=== PATIENT | female | born 1950 | race Caucasian/White ===

== ENCOUNTER → 2016-10-10 | Outpatient (CLI) | payer BC ==
[2016-10-10 12:07] LABS: URINE APPEARANCE CLEAR (CLEAR); URINE BILIRUBIN NEG (NEG); URINE COLOR YELLOW; URINE NITRITE NEG (NEG); URINE SPECIFIC GRAVITY 1.006 (1.000-1.030); UROBILINOGEN NEG (NEG)
[2016-10-10 12:23] LABS: MANUAL MICROSCOPIC REQUIRED? NO; REVIEW REQ? NO
[2016-10-10 12:40] LABS: BLOOD UREA NITROGEN 15 mg/dl (7-18); BUN/CREATININE RATIO 15.4 (10-20); CALCIUM 9.3 mg/dl (8.5-10.1); CARBON DIOXIDE 27 mmol/L (21-32); CHLORIDE 105 mmol/L (98-107); CREATININE 0.94 mg/dl (0.60-1.20); GLUCOSE 75 mg/dl (70-99); PHOSPHORUS 2.6 mg/dl (2.5-4.9); POTASSIUM 3.8 mmol/L (3.5-5.1); SODIUM 142 mmol/L (136-145)
[2016-10-10 12:44] LABS: URINE TOTAL PROTEIN < 5.0 mg/dl (0-11.9)
== END | disposition home or self-care (01) ==
LOC: C.LAB1850 10:57
PROVIDERS: ATTEND Internal Medicine Nephrology
DX: Z90.5 Acquired absence of kidney (principal)

== ENCOUNTER → 2017-01-22 | Outpatient (CLI) | payer BC ==
--- NOTE | 2017-01-22 16:39 | MAMMOGRAPHY REPORT ---
BILATERAL DIGITAL SCREENING MAMMOGRAM TOMOSYNTHESIS WITH CAD: 01/22/2017 CLINICAL HISTORY: Routine screening. Patient has no complaints. TECHNIQUE: Breast tomosynthesis in addition to standard 2D mammography was performed. Current study was also evaluated with a Computer Aided Detection (CAD) system. COMPARISON: Comparison is made to exams dated: 01/19/2016 ultrasound, 01/19/2016 mammogram, 01/17/2015 ultrasound, 01/17/2015 mammogram, 01/03/2015 mammogram - [facility]. BREAST COMPOSITION: There are scattered areas of fibroglandular density in both breasts. FINDINGS: No suspicious masses, calcifications, or areas of architectural distortion are noted in e ither breast. There has been no significant interval change compared to prior exams. There are stab le postoperative changes in the right anterior breast. bilateral benign-appearing calcifications are not significantly changed. Asymmetry in the left upper outer quadrant is stable. IMPRESSION: ACR BI-RADS CATEGORY 2: BENIGN There is no mammographic evidence of malignancy. A 1 year screening mammogram is recommended. The p atient will receive written notification of the results. Approximately 10% of breast cancers are not detected with mammography. A negative mammographic repor t should not delay biopsy if a clinically suggestive mass is present. Cristina Castro M.D. ah/:01/22/2017 15:10:36 Stone Breaker: Rahel REZA(Herlinda)(M), [facility] letter sent: Normal 1/2 BI-RADS Code: ACR BI-RADS Category 2: Benign
== END | disposition home or self-care (01) ==
LOC: C.MAMM 13:23
PROVIDERS: ATTEND Internal Medicine
DX: Z12.31 Encounter for screening mammogram for malignant neoplasm of breast (principal)

== ENCOUNTER → 2017-07-10 | Outpatient (CLI) | payer BC ==
--- NOTE | 2017-07-10 13:47 | DIAGNOSTIC IMAGING REPORT ---
SOFT TISS HEAD/NECK-THYROID CLINICAL HISTORY: 67 years-old Female presenting with E04.1 Solitary thyroid nodulepelase review [facility]- [id number]. TECHNIQUE: Real-time grayscale and color Doppler ultrasound imaging of the thyroid and base of the neck was performed. COMPARISON: 08/19/2016. FINDINGS: Right lobe: Normal echogenicity and echotexture. The right lobe of the thyroid measures 4.3 x 1.8 x 1.8 cm. Nodules are numerous below: 1) Previously noted solid hyperechogenic nodule at the lower pole now measures 1.0 x 1.4 x 0.8 cm, previously 1.4 x 0.8 x 1.1 cm. This is well-defined and wider than tall (low suspicion). 2) Adjacent hyperechogenic nodule with suspected calcification now measures 0.5 x 0.6 x 0.3 cm, previously 0.6 cm (low suspicion). Left lobe: Normal echogenicity and echotexture. The left lobe of the thyroid measures 3.9 x 1.6 x 1.7 cm. Multiple nodules, index nodule enumerated below: 1) previously noted isoechoic to hyperechoic nodule at the upper pole measures 1.1 x 1.2 x 0.8 cm and is fairly well-defined and wider than tall (low suspicion). Isthmus: The isthmus measures 5 mm in thickness. No nodules. IMPRESSION: 1. Multiple low suspicion pattern thyroid nodules in both lobes of the thyroid. Based on the [place] thyroid [employer] criteria, no fine-needle aspiration of these nodules is recommended at this time. Follow-up as clinically indicated. Electronically signed by: Shant Lutz M.D. 07/10/2017 1:45 PM Dictated Date/Time: 07/10/2017 1:41 PM
== END | disposition home or self-care (01) ==
LOC: C.ULTR 12:52
PROVIDERS: ATTEND Internal Medicine
DX: E04.2 Nontoxic multinodular goiter (principal)

== ENCOUNTER → 2017-09-19 | Outpatient (CLI) | payer BC ==
[2017-09-19 12:16] LABS: BLOOD UREA NITROGEN 21 mg/dl (7-18); BUN/CREATININE RATIO 18.6 (10-20); CALCIUM 9.7 mg/dl (8.5-10.1); CARBON DIOXIDE 29 mmol/L (21-32); CHLORIDE 105 mmol/L (98-107); CREATININE 1.12 mg/dl (0.60-1.20); GLUCOSE 79 mg/dl (70-99); POTASSIUM 4.1 mmol/L (3.5-5.1); SODIUM 139 mmol/L (136-145)
[2017-09-19 12:26] LABS: PHOSPHORUS 3.3 mg/dl (2.5-4.9)
[2017-09-19 12:33] LABS: URINE APPEARANCE CLEAR (CLEAR); URINE BILIRUBIN NEG (NEG); URINE COLOR YELLOW; URINE NITRITE NEG (NEG); URINE SPECIFIC GRAVITY 1.025 (1.000-1.030); UROBILINOGEN NEG (NEG)
[2017-09-19 12:37] LABS: MANUAL MICROSCOPIC REQUIRED? NO; REVIEW REQ? NO
== END | disposition home or self-care (01) ==
LOC: C.LAB1850 10:08
PROVIDERS: ATTEND Internal Medicine
DX: E04.1 Nontoxic single thyroid nodule (principal); Z11.59 Encounter for screening for other viral diseases; Z90.5 Acquired absence of kidney

== ENCOUNTER → 2017-10-24 | Outpatient (CLI) | payer OTHER ==
[2017-10-24 12:33] LABS: BASO % 0.7 %; BASO ABS # 0.04 K/uL (0-0.2); COMPLETE YES; EOS % 2.4 %; EOS ABS # 0.14 K/uL (0-0.5); HEMATOCRIT 42.1 % (37-47); HEMOGLOBIN 13.8 g/dL (12.0-16.0); IG# 0.01 K/uL (0.00-0.02); IG% 0.2 %; LYMPH % 34.4 %; LYMPH ABS # 1.98 K/uL (1.2-3.4); MEAN CELL VOLUME 92.1 fL (80-100); MEAN CORPUSCULAR HEMOGLOBIN 30.2 pg (25-34); MEAN CORPUSCULAR HGB CONC 32.8 g/dl (32-36); MEAN PLATELET VOLUME 11.9 fL (7.4-10.4); MONO % 10.8 %; MONO ABS # 0.62 K/uL (0.11-0.59); NEUT % 51.5 %; NEUT ABS # 2.97 K/uL (1.4-6.5); PLATELET COUNT 277 K/uL (130-400); RED BLOOD COUNT 4.57 M/uL (4.2-5.4); RED CELL DISTRIBUTION WIDTH CV 14.5 % (11.5-14.5); RED CELL DISTRIBUTION WIDTH SD 48.8 fL (36.4-46.3); WHITE BLOOD COUNT 5.76 K/uL (4.8-10.8)
[2017-10-24 15:41] LABS: ALBUMIN 3.6 gm/dl (3.4-5.0); BLOOD UREA NITROGEN 16 mg/dl (7-18); BUN/CREATININE RATIO 16.7 (10-20); CALCIUM 9.5 mg/dl (8.5-10.1); CARBON DIOXIDE 29 mmol/L (21-32); CHLORIDE 104 mmol/L (98-107); CHOLESTEROL 213 mg/dl (0-200); CREATININE 0.94 mg/dl (0.60-1.20); EstGFR CKD-E AfrAm 73.3; EstGFR CKD-E NON AfrAm 63.2; POTASSIUM 4.2 mmol/L (3.5-5.1); SODIUM 138 mmol/L (136-145); TRIGLYCERIDES 121 mg/dl (0-150); VERY LOW DENSITY LIPOPROT CALC 24 mg/dl
[2017-10-24 15:41] LABS: GLUCOSE 88 mg/dl (70-99)
[2017-10-24 15:45] LABS: CHOLESTEROL/HDL RATIO 3.7; HDL CHOLESTEROL 58 mg/dl; LDL CHOLESTEROL CALCULATED 131 mg/dl; PHOSPHORUS 2.9 mg/dl (2.5-4.9)
== END | disposition home or self-care (01) ==
LOC: C.LAB1850 09:53
DX: Z90.5 Acquired absence of kidney (principal); R68.89 Other general symptoms and signs; E78.5 Hyperlipidemia, unspecified; E55.9 Vitamin D deficiency, unspecified

== ENCOUNTER 2018-02-01 01:42 | Observation (INO) | payer OTHER ==
[~2018-02-01] VITALS: Ht 162.6 cm; Wt 59.3 kg
[2018-02-01] MEDS ORDERED: ASPIRIN 81 MG CHEW PO STA (02:05)
[2018-02-01] MEDS ORDERED: METOPROLOL TARTRATE 1 MG/ML VIAL IV STA (02:05)
[2018-02-01 02:26] LABS: BASO % 0.6 %; BASO ABS # 0.05 K/uL (0-0.2); EOS ABS # 0.08 K/uL (0-0.5); HEMATOCRIT 43.9 % (37-47); HEMOGLOBIN 14.9 g/dL (12.0-16.0); IG# 0.01 K/uL (0.00-0.02); LYMPH % 40.1 %; LYMPH ABS # 3.28 K/uL (1.2-3.4); MEAN CELL VOLUME 89.8 fL (80-100); MEAN CORPUSCULAR HEMOGLOBIN 30.5 pg (25-34); MEAN CORPUSCULAR HGB CONC 33.9 g/dl (32-36); MEAN PLATELET VOLUME 10.7 fL (7.4-10.4); MONO ABS # 0.65 K/uL (0.11-0.59); NEUT % 50.2 %; PLATELET COUNT 258 K/uL (130-400); RED CELL DISTRIBUTION WIDTH CV 13.9 % (11.5-14.5); RED CELL DISTRIBUTION WIDTH SD 46.3 fL (36.4-46.3); WHITE BLOOD COUNT 8.17 K/uL (4.8-10.8)
--- NOTE | 2018-02-01 02:35 | EMERGENCY ROOM VISIT NOTE ---
History Report prepared by Kaylynn: Arley Valdes Under the Supervision of: Dr. Sasha Barron D.O. First contact with patient: 01:52 Chief Complaint: HYPERTENSION Stated Complaint: HIGH BLOOD PRESSURE,HEART PALPITATIONS History of Present Illness The patient is a 67 year old female who presents to the Emergency Room with complaints of persistent left chest pain since 0120 this morning. She describes the pain as a discomfort. She reports similar symptoms one month ago, though it resolved on its own. She state her blood pressure has been abnormally elevated as well. She notes nausea, though denies any vomiting. She reports shortness of breath. She denies any sweating. She reports she was fine before bed. She denies any history of CAD or AR. She states that her father had heart problems, though she does not know how old he was. She reports a family history of HTN. She reports having one kidney removed at 25 years old due to chronic nephrolithiasis. She reports a history of an abscess in her lungs, though denies any related surgery. She denies taking any Aspirin. She denies having any history of EKGs. Source of History: patient Onset: since 0120 this morning Position: chest (left ) Quality: other (discomfort) Timing: other (persistent) Associated Symptoms: + SOB, + nausea, No diaphoresis (no sweating), No vomiting Review of Systems See HPI for pertinent positives & negatives. A total of 10 systems reviewed and were otherwise negative. Past Medical & Surgical Medical Problems: (1) Abscess of lung (2) Chest pain (3) HTN (hypertension) (4) Nephrolithiasis Surgical Problems: (1) H/O kidney removal Family History Heart disease Hypertension Social History Smoking Status: Never Smoker Smokeless Tobacco Use: No Alcohol Use: none Drug Use: none Marital Status: Housing Status: lives with significant other Occupation Status: unemployed Current/Historical Medications No Active Prescriptions or Reported Meds Allergies Coded Allergies: Ciprofloxacin (Verified Adverse Reaction, Intermediate, " LEGS ACHE", 02/01) Physical Exam Vital Signs Date Time Temp Pulse Resp B/P (MAP) Pulse Ox O2 Delivery O2 Flow Rate FiO2 02/01/18 03:03 58 18 165/99 98 Room Air 02/01/18 02:16 76 178/102 02/01/18 02:01 87 02/01/18 01:48 36.4 92 18 198/106 100 Room Air Physical Exam HEENT: Head - normocephalic and atraumatic Pupils are equal, round, and reactive to light. Extraocular eye muscles are intact, and sclera are anicteric. Nose - moist nasal mucosa without discharge. Mouth - moist buccal mucosa. Oropharynx is nonerythematous and there is no tonsillar exudate or edema noted. Neck: Supple; no JVD, nuchal rigidity, cervical lymphadenopathy, or auscultated bruits. Heart: Regular rate and rhythm. There is a normal S1 and S2 with no murmurs, clicks, or gallops appreciated. Lungs: Clear to auscultation bilaterally with no wheezes, rales, or rhonchi. Abdomen: Soft, completely nontender, nondistended, with good bowel sounds. There are no palpable pulsatile masses or hepatosplenomegaly. There is no guarding, rigidity, or rebound noted. Extremities: No evidence of cyanosis, clubbing, or edema. There are easily palpable peripheral pulses. Skin: warm and dry with good turgor and no rashes. Medical Decision & Procedures ER Provider Diagnostic Interpretation: Radiology results as stated below per my review and interpretation: CHEST XR: No cardiomegaly. No pulmonary infiltrate. No pleural effusion. Laboratory Results 02/01/18 02:11 Red Blood Count 4.89, Mean Corpuscular Volume 89.8, Mean Corpuscular Hemoglobin 30.5, Mean Corpuscular Hemoglobin Concent 33.9, Mean Platelet Volume 10.7, Neutrophils (%) (Auto) 50.2, Lymphocytes (%) (Auto) 40.1, Monocytes (%) (Auto) 8.0, Eosinophils (%) (Auto) 1.0, Basophils (%) (Auto) 0.6, Neutrophils # (Auto) 4.10, Lymphocytes # (Auto) 3.28, Monocytes # (Auto) 0.65, Eosinophils # (Auto) 0.08, Basophils # (Auto) 0.05 02/01/18 02:11 Test 02/01/18 02:11 White Blood Count 8.17 K/uL (4.8-10.8) Red Blood Count 4.89 M/uL (4.2-5.4) Hemoglobin 14.9 g/dL (12.0-16.0) Hematocrit 43.9 % (37-47) Mean Corpuscular Volume 89.8 fL (80-100) Mean Corpuscular Hemoglobin 30.5 pg (25-34) Mean Corpuscular Hemoglobin Concent 33.9 g/dl (32-36) Platelet Count 258 K/uL (130-400) Mean Platelet Volume 10.7 fL (7.4-10.4) Neutrophils (%) (Auto) 50.2 % Lymphocytes (%) (Auto) 40.1 % Monocytes (%) (Auto) 8.0 % Eosinophils (%) (Auto) 1.0 % Basophils (%) (Auto) 0.6 % Neutrophils # (Auto) 4.10 K/uL (1.4-6.5) Lymphocytes # (Auto) 3.28 K/uL (1.2-3.4) Monocytes # (Auto) 0.65 K/uL (0.11-0.59) Eosinophils # (Auto) 0.08 K/uL (0-0.5) Basophils # (Auto) 0.05 K/uL (0-0.2) RDW Standard Deviation 46.3 fL (36.4-46.3) RDW Coefficient of Variation 13.9 % (11.5-14.5) Immature Granulocyte % (Auto) 0.1 % Immature Granulocyte # (Auto) 0.01 K/uL (0.00-0.02) Anion Gap 6.0 mmol/L (3-11) Est Creatinine Clear Calc Drug Dose 34.1 ml/min Estimated GFR () 48.6 Estimated GFR (Non- 41.9 BUN/Creatinine Ratio 15.9 (10-20) Calcium Level 9.7 mg/dl (8.5-10.1) Total Bilirubin 0.5 mg/dl (0.2-1) Direct Bilirubin 0.1 mg/dl (0-0.2) Aspartate Amino Transf (AST/SGOT) 21 U/L (15-37) Alanine Aminotransferase (ALT/SGPT) 19 U/L (12-78) Alkaline Phosphatase 91 U/L (45-117) Troponin I < 0.015 ng/ml (0-0.045) Total Protein 8.6 gm/dl (6.4-8.2) Albumin 4.2 gm/dl (3.4-5.0) Lipase 273 U/L (73-393) Laboratory results per my review. Medications Administered Medications (Trade) Dose Ordered Sig/Karolina Route Start Time Stop Time Status Last Admin Dose Admin Aspirin (Aspirin Chew) 324 mg NOW STAT PO 02/01/18 02:05 02/01/18 02:06 DC 02/01/18 02:14 324 MG Metoprolol Tartrate (Lopressor Iv) 5 mg NOW STAT IV 02/01/18 02:05 02/01/18 02:06 DC 02/01/18 02:16 5 MG Procedure 0205: Ordered Lopressor 5 mg IV and Aspirin 324 mg PO ECG Per My Interpretation Indication: chest pain Rate (beats per minute): 87 Rhythm: normal sinus Findings: ST depression (Lateral and Inferior concerning for ischemia), no ectopy, other (prolonged QT 471 ms) Comparison ECG Date: no prior available Change: Repeat ECG: Sinus bradycardia 55 bpm Findings: Resolution of ST depressions. ED Course 0154: Past medical records reviewed. The patient was evaluated in room A10. A complete history and physical exam was performed. IV lock was established. 0205: Ordered Lopressor 5 mg IV and Aspirin 324 mg PO 0320: I reassessed the patient at this time. She feels better. She states that she had a short pain on her right side of chest, though it resolved. I discussed the results and treatment plan with the patient. I answered all pertaining questions that she had. She expressed understanding and verbalized agreement. The patient will be further evaluated. 0402: I spoke with Dr. Salas, [facility] hospitalist. We discussed the patient's case. The patient will be evaluated by the [facility] for further management. Medical Decision The patient is a 67 year old female who presents to the ED with chest pain. Differential diagnosis includes GERD, ACS, hypertensive emergency, STEMI, and aortic dissection. Lab results showed: No leukocytosis. Stable H&H. BUN 21. Creat 1.3. Gluc 103. Normal LFTs. Normal Lipase. This is a 67-year-old female patient presents to the emergency department with left-sided chest discomfort. Upon arrival in the emergency department, the patient was significantly hypertensive and describing a discomfort in the left upper chest. EKG revealed some ST segment depression in the inferior and lateral leads. The patient was tachycardic at that time. She was given IV Lopressor which brought the heart rate and blood pressure down. A repeat EKG showed resolution of those ST segment depressions. The patient was also now chest pain-free. I discussed the case with the [facility] Hospitalist and they will evaluate for further management. I am concerned that the patient's left sided chest discomfort was not ischemic in origin and she will need undergo further testing and follow-up with cardiology. Medication Reconcilliation Current Medication List: was personally reviewed by me Blood Pressure Screening Patient's blood pressure: Elevated blood pressure monitored by hospitalist Consults Time Called: [phone] Consulting Physician: Dr. Salas [facility] hospitalist Returned Call: [phone] Salas [facility] hospitalist. We discussed the patient's case. The patient will be evaluated by the [facility] for further management. Impression Primary Impression: Left sided chest pain Additional Impression: HTN (hypertension) Scribe Attestation The scribe's documentation has been prepared under my direction and personally reviewed by me in its entirety. I confirm that the note above accurately reflects all work, treatment, procedures, and medical decision making performed by me. Departure Information Dispostion Being Evaluated By Hospitalist Prescriptions No Active Prescriptions or Reported Meds Referrals RV. Lee MD (PCP) Patient Instructions My [facility] Health Problem Qualifiers Additional Impression: HTN (hypertension) Hypertension type: unspecified Qualified Codes: I10 - Essential (primary) hypertension
[2018-02-01 02:43] LABS: ALBUMIN 4.2 gm/dl (3.4-5.0); ALT/SGPT 19 U/L (12-78); AST/SGOT 21 U/L (15-37); BLOOD UREA NITROGEN 21 mg/dl (7-18); CALCIUM 9.7 mg/dl (8.5-10.1); CARBON DIOXIDE 28 mmol/L (21-32); CREATININE 1.32 mg/dl (0.60-1.20); GLUCOSE 103 mg/dl (70-99); LIPASE 273 U/L (73-393); POTASSIUM 3.6 mmol/L (3.5-5.1); SODIUM 138 mmol/L (136-145)
[2018-02-01 02:48] LABS: ALKALINE PHOSPHATASE 91 U/L (45-117); TOTAL PROTEIN 8.6 gm/dl (6.4-8.2)
[2018-02-01] MEDS ORDERED: ONDANSETRON INJ 2 MG/ML 2 ML VIAL IV PRN (03:45)
[2018-02-01] MEDS ORDERED: MAGNESIUM HYDROXIDE SUSP 30 ML UDC PO PRN (03:45)
[2018-02-01] MEDS ORDERED: ZOLPIDEM TARTRATE 5 MG TAB PO PRN (03:45)
[2018-02-01] MEDS ORDERED: ACETAMINOPHEN 325 MG TAB PO PRN (03:45)
[2018-02-01] MEDS ORDERED: NITROGLYCERIN 2% OINTMENT 30GM TUBE EXT ONE (03:45)
[2018-02-01] MEDS ORDERED: NITROGLYCERIN 0.4 MG SL PER TAB CHARGE SL PRN (03:45)
[2018-02-01] MEDS ORDERED: MoRPHine SULFATE 2 MG/ML CARP IV PRN (03:45)
[2018-02-01] MEDS ORDERED: ALUMINUM/MAGNESIUM/SIMETH (MAALOX MAX) 30 ML UDC PO PRN (03:45)
[2018-02-01] MEDS ORDERED: POLYETHYLENE (MIRALAX) 17 GM PACK PO PRN (03:45)
--- NOTE | 2018-02-01 03:55 | History and Physical ---
History & Physical Date & Time of Service: Feb 01, 2018 at 03:43 Chief Complaint: High Blood Pressure,Heart Palpitations Primary Care Physician: RV. Lee MD History of Present Illness Source: patient, hospital records 67 y/o F Hx Nephrectomy at age 25. Presents with L sided CP accompanied by SOB and nausea which woke her from sleep. Denies vomiting or diaphoresis. The pain does not radiate. Th pt's SBP on arrival to the ER was approximately 200. An EKG showed minimal inferior and lateral depressions. She received IV Metoprolol which in addition to lowering her HR and BP, lead to resolution of her CP and resolution of EKG abnormalities. The pt states that she had been prescribed an salazar inhibitor several years ago but had not needed it for some time. She noted that recently she had been experiencing chest tightness and a posterior headache which she attributed to an elevated BP. She reports a borderline high cholesterol level which is not presently treated. Initial labs were notable for a negative troponin and mild MELVIN. 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[employer]), does not smoke or drink - she hails from [place] [employer] Smoking Status: Never Smoker Smokeless Tobacco Use: No Drug Use: none Marital Status: Occupational Status: unemployed Allergies Coded Allergies: Ciprofloxacin (Verified Adverse Reaction, Intermediate, " LEGS ACHE", 02/01) Home Medications No Active Prescriptions or Reported Meds Review of Systems Constitutional: No fever, No chills, No sweats Eyes: No worsening of vision ENT: No hearing loss, No nasal symptoms Respiratory: No cough, No wheezing Cardiovascular: + chest pain, No orthopnea, No PND Abdomen: No pain, No vomiting Musculoskeletal: No joint pain Genitourinary - Female: No dysuria, No urinary frequency, No urinary urgency Neurologic: No memory loss, No weakness Psychiatric: No depression symptoms Endocrine: No fatigue Hematologic / Lymphatic: No abnormal bleeding/bruising Integumentary: No rash Allergic / Immunologic: No environmental allergies Physical Exam Vital Signs Date Time Temp Pulse Resp B/P (MAP) Pulse Ox O2 Delivery O2 Flow Rate FiO2 02/01/18 03:03 58 18 165/99 98 Room Air 02/01/18 02:16 76 178/102 02/01/18 02:01 87 02/01/18 01:48 36.4 92 18 198/106 100 Room Air General Appearance: WD/WN, no apparent distress Head: normocephalic Eyes: normal inspection ENT: normal ENT inspection, pharynx normal Neck: supple, no JVD Respiratory/Chest: chest non-tender, lungs clear, normal breath sounds Cardiovascular: regular rate, rhythm, no edema, no gallop Abdomen/GI: normal bowel sounds, non tender, soft Back: normal inspection, no CVA tenderness Extremities/Musculoskelatal: normal inspection, no calf tenderness, normal capillary refill 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, no motor/sensory deficits, alert, oriented x 3 Skin: normal color Diagnostics Laboratory Results Results Past 24 Hours Test 02/01/18 02:11 Range/Units White Blood Count 8.17 4.8-10.8 K/uL Red Blood Count 4.89 4.2-5.4 M/uL Hemoglobin 14.9 12.0-16.0 g/dL Hematocrit 43.9 37-47 % Mean Corpuscular Volume 89.8 80-100 fL Mean Corpuscular Hemoglobin 30.5 25-34 pg Mean Corpuscular Hemoglobin Concent 33.9 32-36 g/dl Platelet Count 258 130-400 K/uL Mean Platelet Volume 10.7 7.4-10.4 fL Neutrophils (%) (Auto) 50.2 % Lymphocytes (%) (Auto) 40.1 % Monocytes (%) (Auto) 8.0 % Eosinophils (%) (Auto) 1.0 % Basophils (%) (Auto) 0.6 % Neutrophils # (Auto) 4.10 1.4-6.5 K/uL Lymphocytes # (Auto) 3.28 1.2-3.4 K/uL Monocytes # (Auto) 0.65 0.11-0.59 K/uL Eosinophils # (Auto) 0.08 0-0.5 K/uL Basophils # (Auto) 0.05 0-0.2 K/uL RDW Standard Deviation 46.3 36.4-46.3 fL RDW Coefficient of Variation 13.9 11.5-14.5 % Immature Granulocyte % (Auto) 0.1 % Immature Granulocyte # (Auto) 0.01 0.00-0.02 K/uL Sodium Level 138 136-145 mmol/L Potassium Level 3.6 3.5-5.1 mmol/L Chloride Level 104 98-107 mmol/L Carbon Dioxide Level 28 21-32 mmol/L Anion Gap 6.0 3-11 mmol/L Blood Urea Nitrogen 21 7-18 mg/dl Creatinine 1.32 0.60-1.20 mg/dl Est Creatinine Clear Calc Drug Dose 34.1 ml/min Estimated GFR () 48.6 Estimated GFR (Non- 41.9 BUN/Creatinine Ratio 15.9 10-20 Random Glucose 103 70-99 mg/dl Calcium Level 9.7 8.5-10.1 mg/dl Total Bilirubin 0.5 0.2-1 mg/dl Direct Bilirubin 0.1 0-0.2 mg/dl Aspartate Amino Transf (AST/SGOT) 21 15-37 U/L Alanine Aminotransferase (ALT/SGPT) 19 12-78 U/L Alkaline Phosphatase 91 45-117 U/L Troponin I < 0.015 0-0.045 ng/ml Total Protein 8.6 6.4-8.2 gm/dl Albumin 4.2 3.4-5.0 gm/dl Lipase 273 73-393 U/L EKG Initial: Sinus, normal axis - minimal ST depressions in inferior and lateral leads Repeat: NSR with resolution of ST changes Impression Assessment and Plan 67 y/o F Hx Nephrectomy at age 25. Presents with L sided CP accompanied by SOB and nausea which woke her from sleep. Denies vomiting or diaphoresis. The pain does not radiate. Th pt's SBP on arrival to the ER was approximately 200. An EKG showed minimal inferior and lateral depressions. She received IV Metoprolol which in addition to lowering her HR and BP, lead to resolution of her CP and resolution of EKG abnormalities. The pt states that she had been prescribed an salazar inhibitor several years ago but had not needed it for some time. She noted that recently she had been experiencing chest tightness and a posterior headache which she attributed to an elevated BP. She reports a borderline high cholesterol level which is not presently treated. Initial labs were notable for a negative troponin and mild MELVIN. 1) CP - EKG changes apparent prior to administration of a B cabrera - we have scheduled an AM stress. She has requested a tredmill rather than chemical. serial troponins will be obtained prior. NTG provided PRN. Received ASA on arrival. 2) HTN urgency - as her symptoms and EKG changes resolved with Metoprolol her symptoms and EKG changes may be due to urgency with or without ACS. We would choose to hold additional Metoprolol pending her stress test. NTG is applied with an SBP target of approximately 150. She should likely remain on an antihypertensive going forward. 3) MELVIN - may be effect of elevated pressures over the past few months - will provide IVF and trend a BMP. 4) HPL - should commence statin therapy if there is suspicion of coronary disease. 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 While she will not make her flight it may be prudent to consult cardiology if she is intent on flying in the near future. Full code - Heparin prophylaxis Total time for this admit including review of labs, meds, EKG - discussion with pt and ER attending - 36 min Resuscitation Status VTE Prophylaxis Will order VTE Prophylaxis: Yes
[2018-02-01 04:20] VITALS: BP 155/84; PULSE 62; TEMP 36.3; O2SAT 99; Ht 162.6 cm; Wt 59.3 kg
[2018-02-01] MEDS ORDERED: IV FLUIDS COMPLETED PRN (04:30)
[2018-02-01] MEDS ORDERED: D5NSS + 20MEQ KCL 1,000 ML IV SCH (04:45)
[2018-02-01 05:05] VITALS: BP 147/90
[2018-02-01] MEDS ORDERED: HEPARIN SOD 5000 UNIT/0.5 ML CARP SQ SCH (06:00)
[2018-02-01 07:19] VITALS: BP 125/79; PULSE 58; TEMP 36.3; O2SAT 95
[2018-02-01 08:00] LABS: BLOOD UREA NITROGEN 18 mg/dl (7-18); CALCIUM 9.2 mg/dl (8.5-10.1); CARBON DIOXIDE 26 mmol/L (21-32); CREATININE 0.94 mg/dl (0.60-1.20); GLUCOSE 123 mg/dl (70-99); POTASSIUM 3.8 mmol/L (3.5-5.1); SODIUM 140 mmol/L (136-145)
[2018-02-01] MEDS ORDERED: PNEUMOCOCCAL POLYSACCHARIDES 25 MCG/0.5 ML VIAL/SYR IM. ONE (08:00)
[2018-02-01] MEDS ORDERED: PNEUMOCOCCAL ADMINISTRATION CHARGE ONE (08:00)
--- NOTE | 2018-02-01 08:57 | DIAGNOSTIC IMAGING REPORT ---
SINGLE VIEW CHEST CLINICAL HISTORY: Atypical chest pain. FINDINGS: An AP, portable, upright chest radiograph is obtained. No prior studies are available for comparison at the time of dictation. The examination is degraded by portable technique and patient rotation. The cardiomediastinal silhouette is unremarkable. The lungs and pleural spaces are clear. No pneumothorax is seen. The skeletal structures are osteopenic. The bony thorax is grossly intact. IMPRESSION: No active disease in the chest. Electronically signed by: Sage Cavazos M.D. 02/01/2018 8:56 AM Dictated Date/Time: 02/01/2018 8:55 AM
[2018-02-01] MEDS ORDERED: ASPIRIN 81 MG CHEW PO SCH (09:00)
--- NOTE | 2018-02-01 12:35 | Cardiology Consultation ---
Cardiology Consultation Date of Consultation: Feb 01, 2018. Requesting Physician: Sommer Reason for Consultation: CHest pain Pt evaluation today including: conversation w/ patient, physical exam, chart review, lab review, review of studies, review of inpatient medication list, conversation w/ attending History of Present Illness The patient is a 67-year-old woman without a known history of coronary disease who experienced an episode of chest discomfort last evening. Patient states she was sleeping when she was woken with symptoms of chest discomfort, dyspnea and nausea. The chest symptom involved a squeezing or pressure sensation in the left lateral chest. It appeared to be fairly constant but did not radiate to the jaw or arm. She took her blood pressure at home and noted that was quite elevated. At this point she sought medical attention [facility]. When she arrived she was noted be markedly hypertensive. She was administered some metoprolol which improved her blood pressure relieved her symptoms. She believes the symptoms lasted at least 30 minutes prior to presentation. She cannot recall having had similar symptoms in the past. In general she is a very active individual who was accustomed to routine exercise including walking and working out at the gym. She denies symptoms associated with that type of activity. She has not had symptoms of chest discomfort or limiting dyspnea while exercising. This is true except for 1 episode approximately 2 weeks ago where she felt more tired while exercising. She has not report dizziness or lightheadedness. She has not report a sense of palpitation. She has not had any syncope. She denies any orthopnea. She does have some difficulty with sleeping at night primarily falling asleep. She wakens occasionally to urinate but not due to breathing trouble. 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 No constitutional symptoms recently such as fevers or chills. She did report a very stressful evening yesterday due to preparations for a trip to [place] All Other Systems: Reviewed and Negative Allergies Coded Allergies: Ciprofloxacin (Verified Adverse Reaction, Intermediate, " LEGS ACHE", 02/01) Medications Current Inpatient Medications Medications (Trade) Dose Ordered Sig/Karolina Route Start Time Stop Time Status Last Admin Dose Admin Heparin Sodium (Porcine) (Heparin Sq 5000 Unit/0.5ml) 5,000 unit Q8 SQ 02/01/18 06:00 03/03/18 05:59 Acetaminophen (Tylenol Tab) 650 mg Q4H PRN PO 02/01/18 03:45 03/03/18 03:44 Al Hydrox/Mg Hydrox/Simethicone (Maalox Max Susp) 15 ml Q4H PRN PO 02/01/18 03:45 03/03/18 03:44 Magnesium Hydroxide (Milk Of Magnesia Susp) 30 ml Q12H PRN PO 02/01/18 03:45 03/03/18 03:44 Zolpidem Tartrate (Ambien Tab) 5 mg HSZ PRN PO 02/01/18 03:45 03/03/18 03:44 Ondansetron HCl (Zofran Inj) 4 mg Q6H PRN IV 02/01/18 03:45 03/03/18 03:44 Nitroglycerin (Nitrostat Tab) 0.4 mg UD PRN SL 02/01/18 03:45 03/03/18 03:44 Morphine Sulfate (MoRPHine SULFATE INJ) 2 mg Q30M PRN IV 02/01/18 03:45 02/15/18 03:44 Polyethylene (Miralax Powder Packet) 17 gm DAILY PRN PO 02/01/18 03:45 03/03/18 03:44 Miscellaneous (Iv Fluids Completed) 1 ea PRN PRN N/A 02/01/18 04:30 02/01/19 04:29 Aspirin (Aspirin Chew) 81 mg DAILY PO 02/01/18 09:00 03/03/18 08:59 02/01/18 07:34 81 MG Physical Exam Vital Signs Past 12 Hours Date Time Temp Pulse Resp B/P (MAP) Pulse Ox O2 Delivery O2 Flow Rate FiO2 02/01/18 08:15 Room Air 02/01/18 07:19 36.3 58 18 125/79 (94) 95 Room Air 02/01/18 05:05 147/90 (109) 02/01/18 04:20 36.3 62 20 155/84 99 Room Air 02/01/18 04:00 69 20 163/104 98 Room Air 02/01/18 03:03 58 18 165/99 98 Room Air 02/01/18 02:16 76 178/102 02/01/18 02:01 87 02/01/18 01:48 36.4 92 18 198/106 100 Room Air She is alert and oriented x3. Mood affect appear normal. She answered all questions appropriately. HEENT: Sclerae are anicteric. Pupils are equal and reactive to light and accommodation. Extraocular movements were intact. Neuro: Cranial nerves intact Neck: Examination of the submandibular region did not reveal any significant lymphadenopathy. Carotids are palpable bilaterally and free of bruits on auscultation. There was no evidence of jugular venous distention. The thyroid was not enlarged. Lungs: Lungs are clear to auscultation bilaterally. There are no rales wheezes or rhonchi. She has normal respiratory effort without use of accessory muscles. There is normal pulmonary excursion. Cardiac: The rhythm was regular. S1 and S2 were normal. There are no murmurs on examination. The PMI was not markedly displaced on palpation. Abdomen: The abdomen was soft and nontender. Extremities: Patient has bilateral radial pulses that are equal in intensity. There is no evidence cyanosis or clubbing. There was no evidence of significant peripheral edema bilaterally. Skin: There are no rashes noted on examination today. Data Laboratory Results: Last 24 Hours Test 02/01/18 02:11 02/01/18 07:11 02/01/18 12:08 White Blood Count 8.17 K/uL Red Blood Count 4.89 M/uL Hemoglobin 14.9 g/dL Hematocrit 43.9 % Mean Corpuscular Volume 89.8 fL Mean Corpuscular Hemoglobin 30.5 pg Mean Corpuscular Hemoglobin Concent 33.9 g/dl Platelet Count 258 K/uL Mean Platelet Volume 10.7 fL Neutrophils (%) (Auto) 50.2 % Lymphocytes (%) (Auto) 40.1 % Monocytes (%) (Auto) 8.0 % Eosinophils (%) (Auto) 1.0 % Basophils (%) (Auto) 0.6 % Neutrophils # (Auto) 4.10 K/uL Lymphocytes # (Auto) 3.28 K/uL Monocytes # (Auto) 0.65 K/uL Eosinophils # (Auto) 0.08 K/uL Basophils # (Auto) 0.05 K/uL RDW Standard Deviation 46.3 fL RDW Coefficient of Variation 13.9 % Immature Granulocyte % (Auto) 0.1 % Immature Granulocyte # (Auto) 0.01 K/uL Sodium Level 138 mmol/L 140 mmol/L Potassium Level 3.6 mmol/L 3.8 mmol/L Chloride Level 104 mmol/L 109 mmol/L Carbon Dioxide Level 28 mmol/L 26 mmol/L Anion Gap 6.0 mmol/L 5.0 mmol/L Blood Urea Nitrogen 21 mg/dl 18 mg/dl Creatinine 1.32 mg/dl 0.94 mg/dl Est Creatinine Clear Calc Drug Dose 34.1 ml/min 50.9 ml/min Estimated GFR () 48.6 73.3 Estimated GFR (Non- 41.9 63.2 BUN/Creatinine Ratio 15.9 18.6 Random Glucose 103 mg/dl 123 mg/dl Calcium Level 9.7 mg/dl 9.2 mg/dl Total Bilirubin 0.5 mg/dl Direct Bilirubin 0.1 mg/dl Aspartate Amino Transf (AST/SGOT) 21 U/L Alanine Aminotransferase (ALT/SGPT) 19 U/L Alkaline Phosphatase 91 U/L Troponin I < 0.015 ng/ml < 0.015 ng/ml Total Protein 8.6 gm/dl Albumin 4.2 gm/dl Lipase 273 U/L Prothrombin Time 10.8 SECONDS Prothromb Time International Ratio 1.0 Imaging: Chest x-ray was normal EKG: Initial EKG revealed normal sinus rhythm with some mild ST and T-wave changes. Current EKG is normal Telemetry reviewed: Sinus rhythm Assessment & Plan 1. Chest pain: She has few risk factors for coronary disease, but did have chest pain that could be cardiac in nature. She has not have any elevation in her biomarkers despite 30 minutes of symptoms. She did have markedly elevated blood pressure at the time of admission. Her EKG was not entirely normal, but no changes consistent with an acute coronary syndrome. At this point would seem reasonable provide some risk stratification. Patient is scheduled for a stress echocardiogram. 2. Hypertension: Patient had markedly elevated blood pressure the time of admission. Review of her outpatient records suggest borderline blood pressures overall. Will await results of stress echocardiography for further recommendations. If normal, I believe she could be safely discharged with continued cardiac risk factor modification in the outpatient setting.
--- NOTE | 2018-02-01 12:46 | EXERCISE STRESS ECHO ---
*NOTICE TO RECEIVING [employer] This information is strictly Confidential and protected under [place] law. [place] law prohibits you from making any further disclosure of this information unless further disclosure is expressly permitted by the written consent of the person to whom it pertains or is authorized by law. A general authorization for the release of medical or other information is not sufficient for this purpose. Hospital accepts no responsibility if the information is made available to any other person, INCLUDING THE PATIENT. Interpretation Summary * Name: MCKAYLA SMITH Study Date: 02/01/2018 10:45 AM BP: 152/74 mmHg * Patient Location: [facility]\S\N284\S\2 HR: 60 * : 1950 (M/d/yyyy) Gender: Female Height: 60 in * Age: 67 yrs Ethnicity: [place] Weight: 133 lb * Ordering Physician: Luigi Salas * Referring Physician: Self, Referred * Performed By: Amber Zepeda RDCS * * Reason For Study: CHEST PAIN * BSA: 1.6 m2 * -- Conclusions -- * Left ventricular systolic function is normal. * Normal diastolic function * There is moderate mitral regurgitation. * Normal stress echocardiogram without evidence of inducible ischemia Procedure Details * ECHOEX, CPT #84216 Left Ventricular Findings with Stress * Normal stress echocardiogram without evidence of inducible ischemia Left Ventricle * The left ventricle is normal in size. * There is normal left ventricular wall thickness. * Ejection Fraction = 60-65%. * Left ventricular systolic function is normal. * Normal diastolic function * The left ventricular wall motion is normal at rest. Right Ventricle * The right ventricle is normal in size and function. * The right ventricular systolic function is normal as assessed by tricuspid annular plane systolic excursion (TAPSE) (normal >1.5 cm). Atria * The left atrial size is normal. * Right atrial size is normal. Mitral Valve * The mitral valve is grossly normal. * Cannot exclude a minor element posterior leaflet prolapse. * There is moderate mitral regurgitation. Tricuspid Valve * The tricuspid valve is not well visualized, but is grossly normal. * Significant tricuspid regurgitation is absent. Aortic Valve * The aortic valve is normal in structure and function. * The aortic valve is trileaflet. * No hemodynamically significant valvular aortic stenosis. * There is no significant aortic regurgitation. Pericardium * There is no pericardial effusion. Stress Parameters * Normal baseline electrocardiogram. * Mild ST flattening in recovery. * The stress portion of this study was personally supervised by the undersigned interpreting physician. * Rest heart rate was '60' BPM. * Rest blood pressure was '152/74' * Maximum heart rate achieved was 139 bpm. * Maximum heart rate was 90 % of maximum age-predicted heart rate. * Maximum blood pressure was '160/80' * Total exercise time was '9:01' * Maximum exercise MET level achieved was '10.10' METS * Maximum treadmill speed was '3.40' miles per hour. * Maximum treadmill elevation was '14.00'% grade. Left Ventricular Findings with Stress * Baseline EKG was normal There was some minor ST segment flattening primarily in recovery with minimal depression. Baseline echocardiogram was normal At peak exertion there was normal augmentation of all segments without development of inducible wall motion abnormalities Normal heart rate and blood pressure response to exercise Alvarez treadmill score: 9 (low risk) MMode 2D Measurements and Calculations IVSd 1.0 cm IVSs 1.4 cm LVIDd 3.8 cm LVIDs 2.6 cm LVPWd 1.2 cm LVPWs 1.5 cm IVS/LVPW 0.89 FS 32.8 % EDV(Teich) 63.4 ml ESV(Teich) 24.1 ml EF(Teich) 62.0 % EDV(cubed) 56.5 ml ESV(cubed) 17.1 ml EF(cubed) 69.6 % % IVS thick 30.9 % % LVPW thick 29.2 % LV mass(C)d 136.9 grams LV mass(C)dI 87.2 grams/m\S\2 LV mass(C)s 120.4 grams LV mass(C)sI 76.7 grams/m\S\2 SV(Teich) 39.3 ml SI(Teich) 25.0 ml/m\S\2 SV(cubed) 39.3 ml SI(cubed) 25.1 ml/m\S\2 LA dimension 3.1 cm LVAd ap4 21.6 cm\S\2 LVLd ap4 7.1 cm EDV(MOD-sp4) 55.7 ml EDV(sp4-el) 55.3 ml LVAs ap4 12.0 cm\S\2 LVLs ap4 6.5 cm ESV(MOD-sp4) 20.0 ml ESV(sp4-el) 19.0 ml EF(MOD-sp4) 64.1 % EF(sp4-el) 65.7 % LVAd ap2 20.5 cm\S\2 LVLd ap2 7.0 cm EDV(MOD-sp2) 51.8 ml EDV(sp2-el) 50.9 ml LVAs ap2 11.6 cm\S\2 LVLs ap2 5.8 cm ESV(MOD-sp2) 20.5 ml ESV(sp2-el) 19.7 ml EF(MOD-sp2) 60.4 % EF(sp2-el) 61.3 % LVLd %diff -2.07 % EDV(MOD-bp) 54.0 ml LVLs %diff -11.81 % ESV(MOD-bp) 21.3 ml EF(MOD-bp) 60.6 % SV(MOD-sp4) 35.7 ml SI(MOD-sp4) 22.7 ml/m\S\2 SV(MOD-sp2) 31.3 ml SI(MOD-sp2) 19.9 ml/m\S\2 SV(MOD-bp) 32.7 ml SI(MOD-bp) 20.8 ml/m\S\2 SV(sp4-el) 36.4 ml SI(sp4-el) 23.2 ml/m\S\2 SV(sp2-el) 31.2 ml SI(sp2-el) 19.9 ml/m\S\2 Doppler Measurements and Calculations MV E max parish 64.2 cm/sec MV A max parish 47.9 cm/sec MV E/A 1.3 MV dec time 0.23 sec Ao V2 max 134.6 cm/sec Ao max PG 7.2 mmHg Ao max PG (full) 1.9 mmHg LV V1 max PG 5.4 mmHg LV V1 max 115.9 cm/sec
[2018-02-01] MEDS ORDERED: PANT40TA PO ×2 (13:41)
[2018-02-01] MEDS ORDERED: LISI-461 PO ×2 (13:41)
[2018-02-01] MEDS ORDERED: ASPCH81 PO ×2 (13:41)
--- NOTE | 2018-02-01 13:44 | Discharge Instructions ---
Discharge Instructions Date of Service Feb 01, 2018. Admission Reason for Admission: Chest Pain, Htn Discharge Discharge Diagnosis / Problem: Chest pain Discharge Goals Goal(s): Decrease discomfort, Improve function, Improve disease control, Learn about illness, Diagnostic testing, Therapeutic intervention, Prevent Disease Progression Activity Recommendations Activity Limitations: resume your previous activity . Instructions / Follow-Up Instructions / Follow-Up You were admitted to [facility] due to complaints of chest pain. An acute cardiac event was ruled out through cardiac monitoring, cardiac enzymes, EKG, and stress echocardiogram. Other etiologies of your chest pain include acid reflux or high blood pressure. It is important you follow-up with your PCP to further investigate the cause of your symptoms. New medications: Protonix 40 mg daily Lisinopril 10 mg daily Aspirin 81 mg daily High blood pressure: Lisinopril 10 mg daily It is recommended you log your blood pressure once daily. Take this log to your PCP, which will help determine if blood pressure medication is appropriate. Acid reflux: Protonix 40 mg daily It is not recommended you reschedule your flight/travel until you follow-up with your PCP. FOLLOW-UPS: Please follow-up with your PCP within 5-7 days Please follow-up/keep all of your subspecialty appointments Home Care: * If you are having chest pain, call 911 for an ambulance. Do NOT drive yourself to the hospital. * Ask your family members to learn CPR. * Learn to take your own blood pressure and pulse. Keep a record of your results. Ask your doctor when you should seek emergency medical attention. He or she will tell you which blood pressure reading is dangerous. Lifestyle Changes: * Maintain a healthy weight. Get help to lose any extra pounds. * Cut back on salt. * Limit canned, dried, packaged, and fast foods. * Don't add salt to your food. * Season foods with herbs instead of salt when you cook. * Break the smoking habit. Enroll in a stop-smoking program to improve your chances of success. * Limit fatty foods. * Ask your doctor about having your lipid levels checked regularly. * Build up your activity according to your doctor's recommendation. * Ask your doctor when it's okay to resume sexual activity. * Try to manage stress. Follow Up: It is important for you to keep your follow up appointments with your medical provider. Current Hospital Diet Patient's current hospital diet: AHA Diet (Heart Healthy) Discharge Diet Recommended Diet: AHA Diet (Heart Healthy) Procedures Procedures Performed: Stress echocardiogram Pending Studies Studies pending at discharge: no Medical Emergencies . Who to Call and When: Medical Emergencies: If at any time you feel your situation is an emergency, please call 911 immediately. Call 911 immediately or go to your nearest Emergency Room if you experience any of the following: Warning Signs and Symptoms of a Heart Attack * Chest pain that is not relieved by medication * Shortness of breath . Non-Emergent Contact Non-Emergency issues call your: Primary Care Provider Call Non-Emergent contact if: your pain is not controlled, your pain is worsening, your pain is unusual for you, your pain is concerning you, you have any medication questions . . "Provider Documentation" section prepared by Buffy Mclaughlin. . AMI Core Measures Reason no ASA as I/P: Treatment provided - N/A Reason no ASA at D/C: Treatment provided - N/A Reason no statin as I/P: Treatment not indicated Reason no statin at D/C: Treatment not indicated
--- NOTE | 2018-02-01 13:53 | Discharge Summary ---
Discharge Summary Date of Service Feb 01, 2018. Discharge Summary Admission Date: Feb 01, 2018 at 03:53 Discharge Date: Feb 01, 2018 Discharge Disposition: Home Principal Diagnosis: Chest pain Problems/Secondary Diagnoses: GERD HTN urgency h/o gastritis MELVIN Procedures: Stress echocardiogram: Interpretation Summary * Name: MCKAYLA SMITH Study Date: 02/01/2018 10:45 AM BP: 152/74 mmHg * Patient Location: [facility]\S\84\S\2 HR: 60 * : 1950 (M/d/yyyy) Gender: Female Height: 60 in * Age: 67 yrs Ethnicity: [place] Weight: 133 lb * Ordering Physician: uLigi Salas * Referring Physician: Self, Referred * Performed By: Amber Zepeda RDCS * * Reason For Study: CHEST PAIN * BSA: 1.6 m2 * -- Conclusions -- * Left ventricular systolic function is normal. * Normal diastolic function * There is moderate mitral regurgitation. * Normal stress echocardiogram without evidence of inducible ischemia Procedure Details * ECHOEX, CPT #[id number] Left Ventricular Findings with Stress * Normal stress echocardiogram without evidence of inducible ischemia Left Ventricle * The left ventricle is normal in size. * There is normal left ventricular wall thickness. * Ejection Fraction = 60-65%. * Left ventricular systolic function is normal. * Normal diastolic function * The left ventricular wall motion is normal at rest. Right Ventricle * The right ventricle is normal in size and function. * The right ventricular systolic function is normal as assessed by tricuspid annular plane systolic excursion (TAPSE) (normal >1.5 cm). Atria * The left atrial size is normal. * Right atrial size is normal. Mitral Valve * The mitral valve is grossly normal. * Cannot exclude a minor element posterior leaflet prolapse. * There is moderate mitral regurgitation. Tricuspid Valve * The tricuspid valve is not well visualized, but is grossly normal. * Significant tricuspid regurgitation is absent. Aortic Valve * The aortic valve is normal in structure and function. * The aortic valve is trileaflet. * No hemodynamically significant valvular aortic stenosis. * There is no significant aortic regurgitation. Pericardium * There is no pericardial effusion. Stress Parameters * Normal baseline electrocardiogram. * Mild ST flattening in recovery. * The stress portion of this study was personally supervised by the undersigned interpreting physician. * Rest heart rate was '60' BPM. * Rest blood pressure was '152/74' * Maximum heart rate achieved was 139 bpm. * Maximum heart rate was 90 % of maximum age-predicted heart rate. * Maximum blood pressure was '160/80' * Total exercise time was '9:01' * Maximum exercise MET level achieved was '10.10' METS * Maximum treadmill speed was '3.40' miles per hour. * Maximum treadmill elevation was '14.00'% grade. Left Ventricular Findings with Stress * Baseline EKG was normal There was some minor ST segment flattening primarily in recovery with minimal depression. Baseline echocardiogram was normal At peak exertion there was normal augmentation of all segments without development of inducible wall motion abnormalities Normal heart rate and blood pressure response to exercise Alvarez treadmill score: 9 (low risk) SINGLE VIEW CHEST CLINICAL HISTORY: Atypical chest pain. FINDINGS: An AP, portable, upright chest radiograph is obtained. No prior studies are available for comparison at the time of dictation. The examination is degraded by portable technique and patient rotation. The cardiomediastinal silhouette is unremarkable. The lungs and pleural spaces are clear. No pneumothorax is seen. The skeletal structures are osteopenic. The bony thorax is grossly intact. IMPRESSION: No active disease in the chest. Electronically signed by: Sage Cavazos M.D. 02/01/2018 8:56 AM Dictated Date/Time: 02/01/2018 8:55 AM The status of this report is Signed. Draft = Not yet reviewed or approved by Radiologist. Signed = Reviewed and approved by Radiologist Consultations: Cardiology- Dr. Rodriguez Medication Reconciliation New Medications: Lisinopril (Lisinopril) 10 Mg Tab 10 MG PO DAILY for 30 Days, #30 TAB Pantoprazole (Protonix) 40 Mg Tab 40 MG PO DAILY, #30 TAB Aspirin (Aspirin Low Strength) 81 Mg Chew 81 MG PO DAILY for 30 Days Referrals At Discharge Follow up Referrals: Family Practice Referral - Within 1 Week with RV. Lee MD Discharge Exam Review of Systems: Constitutional: No fever, No chills, No sweats, No weakness, No fatigue Eyes: No worsening of vision ENT: No hearing loss Respiratory: No cough, No shortness of breath, No hemoptysis Cardiovascular: No chest pain, No edema, No palpitations Abdomen: No pain, No nausea, No vomiting, No diarrhea, No constipation, No GI bleeding Musculoskeletal: No joint pain, No muscle pain, No swelling, No calf pain Genitourinary - Female: No dysuria, No hematuria Neurologic: No weakness, No numbness/tingling Psychiatric: No depression symptoms, No anxiety Endocrine: No fatigue Hematologic / Lymphatic: No abnormal bleeding/bruising Integumentary: No rash, No itch, No new/changing skin lesions Physical Exam: General Appearance: no apparent distress Eyes: normal inspection, PERRL ENT: hearing grossly normal Neck: supple Respiratory/Chest: lungs clear, normal breath sounds, no respiratory distress, no accessory muscle use Cardiovascular: regular rate, rhythm Abdomen / GI: normal bowel sounds, non tender, soft Extremities: no calf tenderness, no pedal edema Neurologic/Psychiatric: alert, normal mood/affect, oriented x 3 Skin: normal color, warm/dry, no rash Hospital Course 67 y/o F Hx Nephrectomy at age 25. Presents with L sided CP accompanied by SOB and nausea which woke her from sleep. Denies vomiting or diaphoresis. The pain does not radiate. Th pt's SBP on arrival to the ER was approximately 200. An EKG showed minimal inferior and lateral depressions. She received IV Metoprolol which in addition to lowering her HR and BP, lead to resolution of her CP and resolution of EKG abnormalities. The pt states that she had been prescribed an salazar inhibitor several years ago but had not needed it for some time. She noted that recently she had been experiencing chest tightness and a posterior headache which she attributed to an elevated BP. She reports a borderline high cholesterol level which is not presently treated. Initial labs were notable for a negative troponin and mild MELVIN. Chest pain- ACS r/o vs GERD vs HTN: - Admitted to [facility] for cardiac monitoring- no acute events - Cardiac enzymes trended- negative - Stress echocardiogram- negative for ischemic changes - Recommend ASA 81 mg daily at discharge - Per patient, does have a h/o gastritis- diagnosed by EGD- was on Nexium but stopped- symptoms have been returning- will give Protonix daily at discharge and PCP f/u HTN urgency- RESOLVED: - Per patient, she has been taking BPs at home- over the last month, consistently sbp >160. At times, over sbp >190 - Start Lisinopril 10 mg daily - Recommend logging BPs daily- take this log to PCP f/u MELVIN- RESOLVED: Treated w/ IVF Patient is to fly to [place]- recommend f/u w/ PCP prior to travelling to ensure symptoms have resolved, tolerating medications, and BPs controlled DVT prophylaxis: Heparin SQ TID Code status: LEVEL I, FULL Dispo: Discharge to home Supervising Note Dr. Novoa I performed a history and physical examination on the patient. I reviewed above note and agree with it. I discussed plan with APC and patient. During my face to face encounter with the patient, I answered all of the patient's questions. Cardiac etiology seems unlikely given her negative stress test negative troponin. Patient will be discharged. Total Time Spent: Greater than 30 minutes This includes examination of the patient, discharge planning, medication reconciliation, and communication with other providers. Discharge Instructions Please refer to the electronic Patient Visit Report (Discharge Instructions) for additional information. Follow-Up Please follow-up with your PCP within 5-7 days Please follow-up/keep all of your subspecialty appointments Additional Copies To RV. Lee MD
[2018-02-01 13:57] VITALS: BP 125/79; PULSE 58; TEMP 36.3; O2SAT 95
== END 2018-02-01 14:10 | disposition home or self-care (01) ==
LOC: C.EDB 01:44 → C.MED 03:53 → ENRESERV 04:10
PROVIDERS: ADMIT Internal Medicine; ATTEND Internal Medicine
DX: R07.9 Chest pain, unspecified (principal); I10 Essential (primary) hypertension; R00.2 Palpitations; N17.9 Acute kidney failure, unspecified; K21.9 Gastro-esophageal reflux disease without esophagitis; E78.5 Hyperlipidemia, unspecified; Z82.49 Family history of ischemic heart disease and other diseases of the circulatory system; Z88.1 Allergy status to other antibiotic agents; Z80.0 Family history of malignant neoplasm of digestive organs; Z98.890 Other specified postprocedural states; Z90.5 Acquired absence of kidney

== ENCOUNTER 2018-02-03 21:15 | Emergency (ER) | payer OTHER ==
[~2018-02-03] VITALS: Ht 162.6 cm; Wt 60.4 kg
[~2018-02-03 21:15] MED LIST: ASPCH81 PO; LISI-461 PO; PANT40TA PO
[2018-02-03 21:32] VITALS: TEMP 36.6; Ht 162.6 cm; Wt 60.4 kg
--- NOTE | 2018-02-03 22:20 | EMERGENCY ROOM VISIT NOTE ---
History Report prepared by Kaylynn: Arley Valdes Under the Supervision of: Dr. Derrick Strickland D.O. First contact with patient: 21:58 Chief Complaint: HYPERTENSION Stated Complaint: HIGH BLOOD PRESSURE History of Present Illness The patient is a 67 year old female who presents to the Emergency Room with complaints of intermittent hypertension for three days. The patient was seen in the ED two days ago for similar symptoms. She states that she repeatedly checks her blood pressure and notices that it is still elevated. She states that she was feeling sleepy, so she checked her blood pressure it was elevated at 172 systolic. She notes that she is anxious regarding her high blood pressure. She was seen by her PCP who changed her blood pressure medication dose to twice daily. She states that she did take the medication, though her blood pressure has not come down. Source of History: patient Onset: three days Position: other (general) Quality: other (hypertension) Review of Systems See HPI for pertinent positives & negatives. A total of 10 systems reviewed and were otherwise negative. Past Medical & Surgical Medical Problems: (1) Abscess of lung (2) Chest pain (3) HTN (hypertension) (4) Nephrolithiasis Surgical Problems: (1) H/O kidney removal Family History Heart disease Hypertension Social History Smoking Status: Never Smoker Alcohol Use: none Drug Use: none Marital Status: Housing Status: lives with significant other Occupation Status: unemployed Current/Historical Medications Scheduled Aspirin (Aspirin Low Strength), 81 MG PO DAILY Lisinopril (Lisinopril), 10 MG PO DAILY Pantoprazole (Protonix), 40 MG PO DAILY Allergies Coded Allergies: Ciprofloxacin (Verified Adverse Reaction, Intermediate, " LEGS ACHE", 02/01) Physical Exam Vital Signs Date Time Temp Pulse Resp B/P (MAP) Pulse Ox O2 Delivery O2 Flow Rate FiO2 02/03/18 21:53 68 02/03/18 21:32 36.6 81 20 177/106 95 Room Air Physical Exam CONSTITUTIONAL/VITAL SIGNS: Reviewed / noted above. GENERAL: Non-toxic in appearance. INTEGUMENTARY: Warm, dry, and [place]. HEAD: Normocephalic. EYES: without scleral icterus or trauma. ENT/OROPHARYNX: clear and moist. LYMPHADENOPATHY/NECK: Is supple without lymphadenopathy or meningismus. RESPIRATORY: Lungs clear and equal. CARDIOVASCULAR: Regular rate and rhythm. GI/ABDOMEN: Soft and nontender. No organomegaly or pulsatile mass. No rebound or guarding. Normal bowel sounds. EXTREMITIES: Warm and well perfused. BACK: No CVA tenderness. NEUROLOGICAL: Intact without focal deficits. PSYCHIATRIC: normal affect. MUSCULOSKELETAL: Normally developed with good muscle tone. Medical Decision & Procedures ED Course 2201: Previous medical records were reviewed. The patient was evaluated in room B4B. A complete history and physical examination was performed. I discussed the results and treatment plan with the patient. I answered all pertaining questions that she had. She expressed understanding and verbalized agreement. The patient will be discharged home. Medical Decision Differentials include: Acute coronary syndrome, myocardial infarction, CVA, TIA , anemia, infection, pneumonia, UTI, pyelonephritis, poor nutrition, dehydration , electrolyte disturbance, and hypoglycemia. This is a 67-year-old female who presents to the ED with a chief complaint of high blood pressure. The patient states that she was seen by her PCP earlier today. She states that her blood pressure was elevated. Her Kirk told her to start her blood pressure medication that she was put on 2 days ago at the hospital twice a day. The patient states that she took her blood pressure again later in the day and it was elevated. She went back to her PCP and her blood pressure was about 140 systolic and she was told to just continue medication that she had been recommended. The patient this evening checked her blood pressure again and it was elevated and she went to [facility] to check her blood pressure there. It was also elevated when she went to [facility]. The patient then came in here for evaluation. The patient does not have any significant symptoms. No severe headaches, chest pains or shortness of breath. The blood pressure here was 177/106. I rechecked it in the room and it was around 170/90. The patient was advised that there is some blood pressure fluctuation throughout the day while taking the medication. She does have a follow-up appointment with cardiology tomorrow. The patient was advised to keep this appointment. Because the patient was just here for an overnight stay and discharge on Friday, the patient was not felt to require any additional testing at this time. She was discharged. Medication Reconcilliation Current Medication List: was personally reviewed by me Blood Pressure Screening Patient's blood pressure: Elevated blood pressure Blood pressure disposition: Referred to PCP Impression Primary Impression: HTN (hypertension) Scribe Attestation The scribe's documentation has been prepared under my direction and personally reviewed by me in its entirety. I confirm that the note above accurately reflects all work, treatment, procedures, and medical decision making performed by me. Departure Information Dispostion Home / Self-Care Referrals RV. Lee MD (PCP) Patient Instructions Hypertension Dc, My [facility] Additional Instructions Follow-up with your doctor next week for recheck your blood pressure. Continue the medications you have been prescribed.
[2018-02-03 22:25] VITALS: BP 178/90; PULSE 80; O2SAT 99
== END 2018-02-03 22:30 | disposition home or self-care (01) ==
LOC: C.EDB 21:16
DX: I10 Essential (primary) hypertension (principal); Z87.442 Personal history of urinary calculi; Z98.890 Other specified postprocedural states; Z88.1 Allergy status to other antibiotic agents; Z82.49 Family history of ischemic heart disease and other diseases of the circulatory system; Z79.899 Other long term (current) drug therapy